=== PATIENT | female | born 1940 | race Caucasian/White ===

== ENCOUNTER 2022-10-04 15:54 | Inpatient (IN) | payer MEDICARE ==
[~2022-10-04] VITALS: Ht 162.6 cm; Wt 67.1 kg
[2022-10-04 17:51] LABS: BASOPHILS # (AUTO) 0.1 K/uL (0.0-0.2); EOSINOPHILS # (AUTO) 0.1 K/uL (0.0-0.7); EOSINOPHILS % (AUTO) 1.1 % (0.0-6.0); HEMATOCRIT 39 % (33-45); LYMPHOCYTES # (AUTO) 1.9 K/uL (0.8-4.8); LYMPHOCYTES % (AUTO) 18.7 % (20.0-44.0); MEAN CORPUSCULAR HEMOGLOBIN 28 PG (26.0-33.0); MEAN CORPUSCULAR HGB CONC 33 g/dl (31.0-36.0); MEAN CORPUSCULAR VOLUME 85 fL (82-100); MONOCYTES # (AUTO) 0.9 K/uL (0.1-1.30); MONOCYTES % (AUTO) 9.1 % (2.0-12.0); NEUTROPHILS # (AUTO) 7.2 K/uL (1.8-8.9); NEUTROPHILS % (AUTO) 70.1 % (43.0-81.0); PLATELET COUNT (AUTO) 254 K/uL (150-450); RED CELL DISTRIBUTION WIDTH 14.2 % (11.5-15.0); WHITE BLOOD COUNT (AUTO) 10.2 K/uL (4.3-11.0)
[2022-10-04 18:00] LABS: CALCIUM, SERUM 10.3 mg/dL (8.5-10.1); CREATININE 0.7 mg/dL (0.6-1.3); POTASSIUM 2.9 mmol/L (3.5-5.1)
[2022-10-04] MEDS ORDERED: LOSA50TA39 PO (19:14)
[2022-10-04] MEDS ORDERED: PANT40TA49 PO (19:14)
[2022-10-04] MEDS ORDERED: EMPA10TA PO (19:14)
[2022-10-04] MEDS ORDERED: CLOP75TA15 PO (19:14)
[2022-10-04] MEDS ORDERED: ROSU40TA PO (19:14)
[2022-10-04] MEDS ORDERED: OMAL75SY SQ (19:14)
[2022-10-04] MEDS ORDERED: METF-440 PO (19:14)
[2022-10-04] MEDS ORDERED: ETHA25TA2 PO (19:14)
[2022-10-04] MEDS ORDERED: ASPI-1169 PO (19:14)
[2022-10-04] MEDS ORDERED: MONT10TA22 PO (19:14)
[2022-10-04] MEDS ORDERED: METO25TA20 PO (19:14)
[2022-10-04] MEDS ORDERED: FLUT1DIS5 IH (19:14)
[2022-10-04] MEDS ORDERED: ACET-868 PO (19:14)
[2022-10-04] MEDS ORDERED: SYNTHROID PO (19:22)
[2022-10-04 20:08] LABS: APPEARANCE,URINE CLEAR (CLEAR); BILIRUBIN,URINE NEGATIVE (NEGATIVE); BLOOD, URINE TRACE-INTA Ery/uL (NEGATIVE); COLOR,URINE YELLOW (YELLOW); KETONES,URINE NEGATIVE (NEGATIVE); LEUKOCYTE ESTERASE ,URINE NEGATIVE (NEGATIVE); NITRITE, URINE NEGATIVE (NEGATIVE); PH,URINE 7.5 (5.0-8.0); PROTEIN,URINE TRACE mg/dl (NEGATIVE); UGLUCOSE 3+ mg/dL (NEGATIVE); UROBILINOGEN,URINE 0.2 EU/dL (0.2)
[2022-10-04 20:09] LABS: WBC,URINE 0-2 /HPF (0-3)
[2022-10-04 20:10] LABS: ADD URINE CULTURE NO; BACTERIA,URINE None seen /HPF (None Seen)
[2022-10-04 21:11] LABS: INR 0.92 (0.91-1.10); PARTIAL THROMBOPLASTIN TIME 27.1 SEC (24.3-34.3); PROTHROMBIN TIME 9.8 SECS (9.2-11.1)
[2022-10-04 22:00] VITALS: BP 148/62; TEMP 98.6; O2SAT 97
[2022-10-04 23:22] VITALS: BP 148/62; TEMP 98.6; O2SAT 97
[2022-10-04] MEDS ORDERED: ZOLPIDEM TARTRATE 5 MG TABLET PO PRN (23:30)
[2022-10-04] MEDS ORDERED: POTASSIUM CHLORIDE 20 MEQ TAB.PRT.SR PO ONE (23:30)
[2022-10-04] MEDS ORDERED: MAG HYDROX/AL HYDROX/SIMETH 30 ML UDC PO PRN (23:30)
[2022-10-04] MEDS ORDERED: MAGNESIUM HYDROXIDE 30 ML UDC PO PRN (23:30)
[2022-10-04] MEDS ORDERED: Z GUARD REMEDY 4 OZ OINT TP PRN (23:30)
[2022-10-04] MEDS ORDERED: ONDANSETRON HCL/PF 4 MG/2 ML VIAL IVP PRN (23:30)
[2022-10-04] MEDS: ACETAMINOPHEN 325 MG TABLET PO PRN (23:40)
[2022-10-05 04:00] VITALS: BP 112/50; TEMP 93.3; TEMP 98.3; O2SAT 95
[2022-10-05 06:23] LABS: BASOPHILS # (AUTO) 0.1 K/uL (0.0-0.2); BASOPHILS % (AUTO) 0.9 % (0.0-2.0); EOSINOPHILS # (AUTO) 0.2 K/uL (0.0-0.7); EOSINOPHILS % (AUTO) 2.4 % (0.0-6.0); HEMATOCRIT 36 % (33-45); HEMOGLOBIN 11.9 g/dL (11.5-14.8); LYMPHOCYTES # (AUTO) 1.5 K/uL (0.8-4.8); LYMPHOCYTES % (AUTO) 17.4 % (20.0-44.0); MEAN CORPUSCULAR HEMOGLOBIN 29 PG (26.0-33.0); MEAN CORPUSCULAR HGB CONC 33 g/dl (31.0-36.0); MEAN CORPUSCULAR VOLUME 86 fL (82-100); MONOCYTES # (AUTO) 1.2 K/uL (0.1-1.30); NEUTROPHILS # (AUTO) 5.5 K/uL (1.8-8.9); NEUTROPHILS % (AUTO) 65.3 % (43.0-81.0); PLATELET COUNT (AUTO) 232 K/uL (150-450); RED BLOOD CELL COUNT(AUTO) 4.18 MIL/uL (4.0-5.2); WHITE BLOOD COUNT (AUTO) 8.4 K/uL (4.3-11.0)
[2022-10-05 06:37] LABS: CREATININE 0.6 mg/dL (0.6-1.3); MAGNESIUM 2.4 mg/dL (1.8-2.4); PHOSPHORUS 3.3 mg/dL (2.5-4.9); POTASSIUM 4.3 mmol/L (3.5-5.1)
[2022-10-05 08:00] VITALS: BP 117/64; TEMP 98.6
[2022-10-05] MEDS ORDERED: ACETAMINOPHEN 325 MG TABLET PO PRN (08:30)
[2022-10-05] MEDS: ASPIRIN 81 MG TAB.CHEW PO SCH (08:40)
[2022-10-05] MEDS: CLOPIDOGREL BISULFATE 75 MG TABLET PO SCH (08:40)
[2022-10-05] MEDS: LOSARTAN POTASSIUM 50 MG TABLET PO SCH (08:41)
[2022-10-05] MEDS: PANTOPRAZOLE 40 MG TABLET.DR PO SCH (08:41)
[2022-10-05] MEDS: METOPROLOL TARTRATE 25 MG TABLET PO SCH ×2 (08:42→17:00)
[2022-10-05] MEDS ORDERED: Medication Not On Formulary EA (Empagliflozin (Jardiance) 10 MG) PO SCH (09:00)
[2022-10-05] MEDS ORDERED: ETHACRYNIC ACID 25 MG TABLET PO SCH (09:00)
[2022-10-05] MEDS: FLUTICASONE/VILANTEROL 1 EACH BLST.W.DEV IH SCH (09:00)
[2022-10-05] MEDS ORDERED: METFORMIN 500 MG TABLET PO SCH (09:00)
[2022-10-05] MEDS ORDERED: LEVOTHYROXINE SODIUM 50 MCG TABLET PO SCH (09:00)
[2022-10-05] MEDS ORDERED: MONTELUKAST SODIUM (10MG) 10 MG TABLET PO SCH (09:00)
[2022-10-05] MEDS ORDERED: PANTOPRAZOLE 40 MG VIAL IV SCH (09:00)
[2022-10-05] MEDS ORDERED: BUMETANIDE (1 MG) 1 MG TABLET PO SCH (09:00)
[2022-10-05] MEDS: METFORMIN 500 MG TABLET PO SCH (17:29)
[2022-10-05] MEDS: MONTELUKAST SODIUM (10MG) 10 MG TABLET PO SCH (17:29)
[2022-10-05] MEDS: ACETAMINOPHEN 325 MG TABLET PO PRN (18:47)
[2022-10-05 20:00] VITALS: BP 101/51; TEMP 99.1; O2SAT 95
[2022-10-05] MEDS ORDERED: ATORVASTATIN 40 MG TABLET PO SCH (22:00)
[2022-10-06] MEDS: LEVOTHYROXINE SODIUM 50 MCG TABLET PO SCH ×2 (06:03→07:30)
[2022-10-06 08:00] VITALS: BP 120/60; TEMP 98.9; O2SAT 99
[2022-10-06] MEDS ORDERED: NA PHOS,M-B/NA PHOS,DI-BA 1 EA ENEMA RC PRN (08:00)
[2022-10-06] MEDS: METFORMIN 500 MG TABLET PO SCH ×2 (09:00→17:45)
[2022-10-06] MEDS: FLUTICASONE/VILANTEROL 1 EACH BLST.W.DEV IH SCH (09:00)
[2022-10-06] MEDS: MONTELUKAST SODIUM (10MG) 10 MG TABLET PO SCH ×2 (09:00→17:45)
[2022-10-06] MEDS ORDERED: ETHACRYNIC ACID 25 MG TABLET PO SCH (09:00)
[2022-10-06] MEDS: ASPIRIN 81 MG TAB.CHEW PO SCH (09:00)
[2022-10-06] MEDS ORDERED: BUMETANIDE (1 MG) 1 MG TABLET PO SCH (09:00)
[2022-10-06] MEDS: PANTOPRAZOLE 40 MG TABLET.DR PO SCH (09:23)
[2022-10-06] MEDS: LOSARTAN POTASSIUM 50 MG TABLET PO SCH (09:24)
[2022-10-06] MEDS: METOPROLOL TARTRATE 25 MG TABLET PO SCH ×2 (09:25→17:45)
[2022-10-06] MEDS: CLOPIDOGREL BISULFATE 75 MG TABLET PO SCH (09:25)
[2022-10-06] MEDS: ACETAMINOPHEN 325 MG TABLET PO PRN (11:07)
[2022-10-06] MEDS ORDERED: ASPIRIN 81 MG TAB.CHEW PO SCH (12:00)
[2022-10-06 16:00] VITALS: BP 124/62; TEMP 98.5; O2SAT 96
[2022-10-06 17:45] VITALS: BP 124/62
[2022-10-06] MEDS ORDERED: ATORVASTATIN 40 MG TABLET PO SCH (18:00)
== END 2022-10-06 19:20 | DRG 566 ==
LOC: ER 15:57 → MED 20:19
PROVIDERS: ADMIT Internal Medicine; ATTEND Nurse Practitioner Acute Care
DX: M25.451 Effusion, right hip (principal); M25.551 Pain in right hip; E11.9 Type 2 diabetes mellitus without complications; I25.10 Atherosclerotic heart disease of native coronary artery without angina pectoris; I10 Essential (primary) hypertension; J45.909 Unspecified asthma, uncomplicated; S51.011A Laceration without foreign body of right elbow, initial encounter; Z96.641 Presence of right artificial hip joint; E03.9 Hypothyroidism, unspecified; E78.5 Hyperlipidemia, unspecified; K59.00 Constipation, unspecified; Z79.82 Long term (current) use of aspirin; Z79.84 Long term (current) use of oral hypoglycemic drugs; Z88.2 Allergy status to sulfonamides; Z95.5 Presence of coronary angioplasty implant and graft; W19.XXXA Unspecified fall, initial encounter; Y93.9 Activity, unspecified; Y92.009 Unspecified place in unspecified non-institutional (private) residence as the place of occurrence of the external cause; Z96.611 Presence of right artificial shoulder joint
CPT/HCPCS: 36415; 70450-TC; 71045-TC; 72125-TC; 73030-TC; 73502; 73700-TC; 80048-TC; 80061-TC; 81001; 83735-TC; 84100-TC; 85025-TC; 85730-TC; 86850-TC; 87081-TC; 93307-TC; 97110-TC; 97112-TC; 97116-TC; 97530-TC; G0378